=== PATIENT | male | born 2000 | race Caucasian/White ===

== ENCOUNTER 2025-05-30 13:22 | Emergency (ER) | payer OTHER, SELFPAY ==
[2025-05-30 13:34] VITALS: BP 121/63; PULSE 84; RESP 18; TEMP 36.7; O2SAT 99
--- OUTSIDE RECORDS SUMMARY | 2025-05-30 13:34 | XMS_ITS | Clinical Summary ---
Author Organization [facility] Address [address] [place] [id number] Care Team Providers Care Retail Specialist Name Role Phone Unknown, Notinfile Primary Care Provider Unavail able Allergies Active Allergy Reactions Criticality Noted Date Comments Adhesive Swelling Medium 01/27/2025 3M plastic tape Azithromycin Anaphylaxis High 01/27/2025 Immunizations Immunization Administration Dates Next Due Tdap 03/03/2025 Social History Tobacco Use Types Packs/Day Years Used Date Smoking Tobacco: Never Assessed Personal Safety Answer Date Recorded Have you ever been in or are you currently in a harmful physical or emotional relationship or is someone making you feel afraid or unsafe? Denies 01/27/2025 Sex and Gender Information Value Date Recorded Sex Assigned at Not on file Legal Sex Male 1:42 PM [employer] Gender Identity Not on file Sexual Orientation Not on file Last Filed Vital Signs Vital Sign Reading Time Taken Comments Blood Pressure 117/72 01/27/2025 10:34 AM CDT Pulse 75 01/27/2025 10:34 AM CDT Temperature 37 C (98.6 F) 01/27/2025 10:34 AM CDT Respiratory Rate 18 01/27/2025 10:34 AM CDT Oxygen Saturation 98% 01/27/2025 10:34 AM CDT Inhaled Oxygen Concentration - - Weight 76.2 kg (168 lb) 01/27/2025 9:21 AM CDT Height 177.8 cm (5' 10) 01/27/2025 9:21 AM CDT Body Mass Index 24.11 01/27/2025 9:21 AM CDT Plan of Treatment Health Maintenance Due Date Last Done Comments Depression Screening 2000 Hepatitis C Screening 2000 Varicella Vaccines (1 of 2 - 13+ 2-dose series) 2013 HPV Vaccines (1 - Male 3-dos e series) 2015 Hepatitis B Screening 2018 Regular Well Visit/Exam 18-64 2018 Influenza Vaccine (#1) 2025 DTaP/Tdap/Td Vaccine (3 - Td or Tdap) 03/03/2035 03/03/2025, 03/06/2020 Pneumococcal vaccine <65 Aged Out No longer eligible based on patient's age to complete this topic Insurance [id number] [place] [address] [employer] Address: [facility] [address] [place] [address] Care Teams Retail Specialist Relationship Specialty Start Date End Date Unknown, Notinfile PCP - General 01/27/25
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
== END 2025-05-30 14:20 | disposition home or self-care (01) ==
PROVIDERS: Emergency Provider Nurse Practitioner Family
DX: T23.211A Burn of second degree of right thumb (nail), initial encounter (principal); T23.121A Burn of first degree of single right finger (nail) except thumb, initial encounter; X19.XXXA Contact with other heat and hot substances, initial encounter
CPT/HCPCS: 16020; 99212; G0463